=== PATIENT | male | born 1995 | race Caucasian/White ===

== ENCOUNTER 2020-06-17 00:16 | Emergency (ER) | payer OTHER, SELFPAY ==
[~2020-06-17] VITALS: Ht 177.8 cm; Wt 81.6 kg
[2020-06-17 00:25] VITALS: BP_SYST 134
--- NOTE | 2020-06-17 00:30 | NUR ---
Placed in room 7 . Placed on site monitor, blood pressure machine and pulse oximeter. To gown for exam. Side rails up. Report given to IRVIN KHOURY.
--- NOTE | 2020-06-17 00:57 | NUR ---
ER at bedside examining patient.
[2020-06-17] MEDS ORDERED: KETOROLAC TROMETHAMINE 30 MG VIAL IVP ONE (01:00)
--- NOTE | 2020-06-17 01:00 | NUR ---
pt a&o x4 from home c/o of chest tightness that started about 1 week ago. pt states he lives with his mom dad and sister and all of them tested positive for covid last week. pt reports having body aches, exhaustion, chest tightness last week but those symptoms have no resolved. pt denies cough, sob, fever, congestion, sore throat, runny nose. pt rates his chest pain 6 out of 10.
--- NOTE | 2020-06-17 01:40 | NUR ---
# 20 gauge angiocath placed to rac. Use of asceptic technique. Opsite placed over site. Blood return noted. Blood, blood cultures, lactic for lab drawn from site. Flushed with 10 cc of normal saline. No evidence of infiltration noted. Patient tolerated well.
[2020-06-17 02:16] LABS: BASOPHILS % (AUTO) 0.3 % (0.0-2.0); EOSINOPHILS # (AUTO) 0.2 K/uL (0.0-0.4); EOSINOPHILS % (AUTO) 4.2 % (0.0-4.0); HEMATOCRIT 46.6 % (36-54); HEMOGLOBIN 16.1 g/dL (14.0-18.0); LYMPHOCYTES # (AUTO) 1.1 K/uL (1.0-5.5); LYMPHOCYTES % (AUTO) 24.9 % (20.5-51.5); MEAN CORPUSCULAR HEMOGLOBIN 32 pg (27-31); MEAN CORPUSCULAR HGB CONC 35 % (32-36); MEAN CORPUSCULAR VOLUME 92 fL (79.0-98.0); MONOCYTES # (AUTO) 0.7 K/uL (0.0-1.0); MONOCYTES % (AUTO) 14.5 % (1.7-9.3); NEUTROPHILS # (AUTO) 2.5 K/uL (1.8-7.7); NEUTROPHILS % (AUTO) 56.1 % (40.0-70.0); PLATELET COUNT (AUTO) 148 K/uL (130-430); RED BLOOD CELL COUNT(AUTO) 5.09 MIL/uL (4.2-6.2); RED CELL DISTRIBUTION WIDTH 12.8 % (9.0-15.0); WHITE BLOOD COUNT (AUTO) 4.5 K/uL (4.8-10.8)
[2020-06-17 02:30] LABS: CREATININE 0.82 mg/dL (0.55-1.30); POTASSIUM 3.5 mmol/L (3.5-5.1)
--- NOTE | 2020-06-17 02:30 | NUR ---
covid swab collected and sent to lab
[2020-06-17 02:43] LABS: ALBUMIN 3.8 g/dL (3.4-4.8); TOTAL BILIRUBIN 0.2 mg/dL (0.0-1.0)
[2020-06-17 03:23] VITALS: BP_SYST 125
--- NOTE | 2020-06-17 03:23 | NUR ---
Patient given written and verbal discharge instructions and verbalizes understanding. ER MD discussed with patient the results and treatment provided. Patient in stable condition. ID arm band removed. IV catheter removed intact and dressing applied, no active bleeding. No Rx given. Patient educated on pain management and to follow up with PMD. Pain Scale 3/10. Opportunity for questions provided and answered. Medication side effect fact sheet provided.
--- NOTE | 2020-06-18 16:04 | NUR ---
Covid + Patient called to inform of covid results, identified by name and 03/13/1997- informed of positive results. Patient states complete understanding.
== END 2020-06-17 03:23 | disposition home or self-care (01) ==
LOC: SED 00:16
DX: U07.1 COVID-19 (principal); R07.89 Other chest pain
CPT/HCPCS: 71045; 80053; 82550; 84484; 85025; 93005; 96374; 99285; C9803; J1885; U0003